=== PATIENT | male | born 1990 | race African-American/Black ===

== ENCOUNTER 2017-11-24 19:02 | Emergency (ER) | payer SELFPAY ==
[~2017-11-24 19:02] MED LIST: ISOVUE-370 76%-LOCM 1 ML ONE
[2017-11-24 19:33] LABS: #Eosinphils 0.1 thou/uL (0.0-0.7); #Lymphocytes 2.4 thou/uL (1.20-3.40); #Monocytes 0.7 thou/uL (0.11-0.59); #Neutrophils 5.2 thou/uL (1.40-6.50); %Basophils 0.6 % (0.0-1.0); %Eosinophils 1.4 % (0.0-10.0); %Lymphocytes 28.1 % (21.0-51.0); %Monocytes 8.4 % (0.0-10.0); %Neutrophils 61.5 % (42.0-75.0); Hemoglobin 14.8 g/dL (14.0-18.0); Mean Corpuscular HGB CONC 33.1 g/dL (32.0-36.0); Mean Corpuscular Hemoglobin 27.1 pg (27.0-31.0); Mean Corpuscular Volume 81.9 fL (78.0-98.0); Mean Platelet Volume 7.5 fL (7.4-10.4); Platelet Count 309 thou/uL (130-400); RBC Distribution Width 13.5 % (11.5-14.5); Red Blood Cell (RBC) Count 5.45 mill/uL (4.70-6.10); White Blood Cell (WBC) Count 8.4 thou/uL (4.8-10.8)
[2017-11-24] MEDS ORDERED: Ondansetron HCl/PF 4 MG/2 ML Vial ONE (19:38)
[2017-11-24 19:57] LABS: ALT (SGPT) 28 U/L (8-55); AST (SGOT) 21 U/L (5-34); Albumin 4.2 g/dL (3.5-5.0); Alkaline Phosphatase 86 U/L (40-150); Anion Gap 11 mmol/L (10-20); BUN (Urea Nitrogen) 11 mg/dL (8.9-20.6); Bilirubin, Total 0.5 mg/dL (0.2-1.2); Calc. Creatinine Clearance 0 mL/min (70-130); Calcium 9.9 mg/dL (7.8-10.44); Carbon Dioxide 26 mmol/L (22-29); Chloride 105 mmol/L (98-107); Estimated GFR-MDRD Greater than 90; Globulin 3.7 g/dL (2.4-3.5); Glucose 128 mg/dL (70-105); Lipase 32 U/L (8-78); Potassium 3.7 mmol/L (3.5-5.1); Protein, Total 7.9 g/dL (6.0-8.3); Sodium 138 mmol/L (136-145)
[2017-11-24 20:40] LABS: Bilirubin Negative (Negative); Blood, Urine Negative (Negative); Clarity CLEAR (Clear); Glucose, Urine (Dipstick) Negative (Negative); Leukocyte Negative (Negative); Nitrite Negative (Negative); Protein, Urine (Dipstick) Trace mg/dL (Neg-Trace); Specific Gravity, Urine 1.026 (1.002-1.036); pH, Urine 6.5 (5.0-9.0)
[2017-11-24] MEDS ORDERED: Ketorolac Tromethamine 30 MG/ML VIAL ONE (20:50)
--- NOTE | 2017-11-25 00:08 | CT ---
CT ABDOMEN AND PELVIS WITH IV CONTRAST: Technique: Multiple contiguous axial images were obtained of the abdomen and pelvis with IV enhanceme nt. Indications: Abdominal pain. Nausea. Vomiting. FINDINGS: Lung bases are clear. Liver, spleen, and pancreas unremarkable. There are several gallstones noted in the gallbladder. There may be a stone in the neck of the gallbl adder. Cholesterol stones are not identified on CT. Consider further evaluation with gallbladder ultr asound. Adrenal glands and kidneys unremarkable. Small bowel loops appear normal. Appendix appears normal. Colon is unremarkable. Aorta is normal argenis sean. IMPRESSION: 1. Cholelithiasis is identified. 2. Otherwise no acute process. POS: [facility]
== END 2017-11-24 23:43 | disposition home or self-care (01) ==
LOC: ERS 19:02
DX: K80.20 Calculus of gallbladder without cholecystitis without obstruction (principal); Z71.6 Tobacco abuse counseling
CPT/HCPCS: 74177; 80053; 81003; 83690; 85025; 87086; 96361; 96372; 96374; 96375; 99406; J1885; J2405

== ENCOUNTER 2022-06-06 09:33 | Emergency (ER) | payer SELFPAY | END 2022-06-06 10:56 | disposition home or self-care (01) | LOC: ERS 09:33 | DX: M79.672 Pain in left foot (principal) ==

== ENCOUNTER 2023-01-02 12:08 | Emergency (ER) | payer SELFPAY ==
[2023-01-02 15:31] LABS: ALT (SGPT) 15 U/L (8-55); AST (SGOT) 17 U/L (5-34); Alkaline Phosphatase 85 U/L (40-110); Anion Gap 10 mmol/L (10-20); BUN (Urea Nitrogen) 8 mg/dL (8.9-20.6); Bilirubin, Total 0.7 mg/dL (0.2-1.2); Calc. Creatinine Clearance 0 mL/min (70-130); Calcium 9.4 mg/dL (7.8-10.44); Carbon Dioxide 25 mmol/L (22-29); Chloride 108 mmol/L (98-107); Estimated GFR 109; Globulin 4.1 g/dL (2.4-3.5); Glucose 82 mg/dL (70-105); Potassium 3.9 mmol/L (3.5-5.1); Protein, Total 8.1 g/dL (6.0-8.3); Sodium 139 mmol/L (136-145)
== END 2023-01-02 14:59 | disposition home or self-care (01) ==
LOC: ERS 12:08
DX: R60.0 Localized edema (principal)
CPT/HCPCS: 36415; 80053; 99283

== ENCOUNTER 2024-03-21 12:27 | Emergency (ER) | payer SELFPAY ==
[2024-03-21 13:46] LABS: Bacteria/HPF None Seen HPF (None Seen); Bilirubin Negative (Negative); Blood, Urine Negative (Negative); CAUTI Indications for Culture Pelvic or flank pain; Clarity Clear (Clear); Glucose, Urine (Dipstick) 200 mg/dL (Negative); Ketone, Urine Negative (Negative); Leukocyte Negative Leu/uL (Negative); Nitrite Negative (Negative); Protein, Urine (Dipstick) Negative (Neg-Trace); RBC/HPF 0-3 HPF (0-3); Specific Gravity, Urine 1.024 (1.002-1.036); Squamous Epithelial 0-3 HPF (0-3); Urobilinogen Normal mg/dL (Less than 2); WBC/HPF 0-3 HPF (0-3)
[2024-03-21 14:03] LABS: Urine Culture Reflex No No
[2024-03-21 19:17] LABS: Chlam.trachomatis by PCR,Urine Not Detected (NotDetected); GC N.gonorrhoeae PCR,UrineVOID Not Detected (NotDetected)
== END 2024-03-21 14:53 | disposition home or self-care (01) ==
LOC: ERS 12:27
DX: M79.642 Pain in left hand (principal)
CPT/HCPCS: 81001; 87491; 87591; 99283

== ENCOUNTER 2024-04-15 03:44 | Emergency (ER) | payer SELFPAY | END 2024-04-15 04:32 | disposition home or self-care (01) | LOC: ERS 03:44 | DX: R04.0 Epistaxis (principal) | CPT/HCPCS: 99282 ==